=== PATIENT | male | born 1965 | race Caucasian/White ===

== ENCOUNTER 2016-12-25 12:51 | Emergency (ER) | payer BC ==
[2016-12-25] MEDS ORDERED: CETIRIZINE 10 MG TABLET PO STA (13:36)
[2016-12-25] MEDS ORDERED: DEXAMETHASONE 10 MG/ML VIAL PO STA (13:36)
[2016-12-25] MEDS ORDERED: DEXAMETHASONE 10 MG/ML VIAL ONE (13:47)
[2016-12-25] MEDS ORDERED: CETIRIZINE 10 MG TABLET ONE (13:47)
== END 2016-12-25 14:04 | disposition home or self-care (01) ==
DX: T63.441A Toxic effect of venom of bees, accidental (unintentional), initial encounter (principal); R22.0 Localized swelling, mass and lump, head
CPT/HCPCS: 99283; A9270

== ENCOUNTER 2018-12-22 14:43 | Emergency (ER) | payer BC ==
--- NOTE | 2018-12-22 15:04 | ED Physician Documentation ---
PD HPI UPPER EXT INJURY - Stated complaint Stated Complaint: L HAND LAC - History obtained from History obtained from: Patient - History of Present Illness Location: Left, Finger (thumb and middle finger) Type of injury: Laceration (He was feeding board into table saw and the wood bucked, causing hand to go into blade. Lac of the thumb on palmar distal phalanx, and major laceration down middle of middle finger in vertical orientation, down to PIP joint.) Where injury occurred: Home Timing - onset: Today Timing - details: Abrupt onset Worsened by: Moving, Palpating Associated symptoms: Weakness. No: Numbness Similar symptoms before: Has not had sx before Review of Systems Skin: reports: Laceration (s) Neurologic: reports: Focal weakness (he feels able to move finger weakly), Near syncope (felt lightheaded briefly when he saw his finger injury and from the pain. But no LOC.). denies: Numbness PD PAST MEDICAL HISTORY - Past Medical History Cardiovascular: None Respiratory: None Endocrine/Autoimmune: None - Present Medications Home Medications: Ambulatory Orders Medication Instructions Recorded Confirmed Atorvastatin [Lipitor] 0 mg PO .FREQ 12/25/16 12/25/16 Dexamethasone [Decadron] 4 mg PO DAILY #5 tablet 12/25/16 Ibuprofen [Advil] 600 mg PO .FREQ 12/25/16 12/25/16 Cephalexin [Keflex] 500 mg PO Q6H #28 capsule 12/22/18 Hydrocodone/Acetaminophen [[place] 1 each PO Q6H PRN #15 tablet 12/22/18 5-325 Tablet] Naproxen 500 mg PO BID #20 tablet 12/22/18 - Allergies Allergies/Adverse Reactions: Allergies Allergy/AdvReac Type Severity Reaction Status Date / Time No Known Drug Allergies Allergy Verified 12/25/16 12:58 PD ED PE NORMAL - Vitals Vital signs reviewed: Yes - General General: Alert and oriented X 3, No acute distress, Well developed/nourished - Derm Derm: Normal color, Warm and dry - Extremities Extremities: Other (laceration of the left thumb palmar fat pad diagonally, to fatty tissue. He can flex and extend at the IP. Normal sesnation at tip. The m iddle finger has vertical laceration starting at middle of nailbed and coming slight diagonal down to the PIP joint area, with the radial side flap falling to side, but still with color and bleeding. Mild sawdust seen in wound and will be irrigated once numbed.) - Neuro Neuro: Alert and oriented X 3, Normal speech, Other (he is able to engage flexion and extension, though extension at DIP is weak. There is visible splitting of some of the extensor tendon on radial side, but still appearing attached to ulnar side. He can flex weakly as well. He says there is sensation to touch/pain on both sides of the fingertip. Good color in both sides of the laceration.) Results - Vitals Vitals: Vital Signs - 24 hr 12/22/18 19:06 Heart Rate 84 Respiratory 18 Rate Blood Pressure 135/115 H O2 Saturation 96 Oxygen O2 Source Room air - Labs Labs: Laboratory Tests 12/22/18 12/22/18 14:55 14:55 WBC 9.9 RBC 4.30 L Hgb 13.4 L Hct 39.6 L MCV 92.0 MCH 31.3 H MCHC 34.0 RDW 13.5 Plt Count 279 MPV 8.0 Neut # (Auto) 4.7 Lymph # (Auto) 3.9 H [place] # (Auto) 1.1 H Eos # (Auto) 0.2 Baso # (Auto) 0.1 Absolute Nucleated RBC 0.00 Nucleated RBC % 0.0 Sodium 139 Potassium 3.3 L Chloride 101 Carbon Dioxide 27 Anion Gap 11.0 BUN 24 H Creatinine 1.1 Estimated GFR (MDRD) 70 L Glucose 143 H Calcium 9.1 Total Bilirubin 0.6 AST 28 ALT 25 Alkaline Phosphatase 67 Total Protein 6.8 Albumin 4.4 Globulin 2.4 Albumin/Globulin Ratio 1.8 Lipase 55 H - Rads (name of study) hand xray Radiology: Prelim report reviewed (split of distal phalanx. But the middle phalanx is not involved.), See rad report Procedures - Regional nerve block Nerve block site: Digital - note digit(s) (middle and thumb) Right / left: Left Nerve block anesthesia: Lidocaine 2% Nerve block aftercare: Excellent anesthesia PD MEDICAL DECISION MAKING - ED course Complexity details: reviewed results, considered differential (considerable laceration to finger; gave Ancef, and did digital block with good effect. Wound irrigated by staff. Dr. Dominguez consulted to evaluate the patient. ), d/w patient, d/w framing consultant (Dr. Dominguez, whom I asked to come in and see the patient. See his procedure note for closure.) Departure - Departure Disposition: 01 Home, Self Care Clinical Impression: Laceration of left middle finger Qualifiers: Encounter type: initial encounter Damage to nail status: with damage Foreign body presence: without foreign body Qualified Code(s): S61.313A - Laceration without foreign body of left middle finger with damage to nail, initial encounter Laceration of left thumb Qualifiers: Encounter type: initial encounter Damage to nail status: without damage Foreign body presence: without foreign body Qualified Code(s): S61.012A - Laceration without foreign body of left thumb without damage to nail, initial encounter Condition: Stable Record reviewed to determine appropriate education?: Yes Instructions: ED Laceration Hand Follow-Up: [facility] [Provider Group] Prescriptions: Cephalexin [Keflex] 500 mg PO Q6H #28 capsule Hydrocodone/Acetaminophen [[place] 5-325 Tablet] 1 each PO Q6H PRN #15 tablet PRN Reason: Pain Naproxen 500 mg PO BID #20 tablet Comments: Keep the area clean and dry. Change the dressing once or twice daily for the next several days. Naproxen anti-inflammatory twice daily. Cephalexin antibiotic as directed. Add Tylenol or hydrocodone as needed for pain. Follow- up with orthopedics next weeks as directed by them, call for an appointment. Discharge Date/Time: 12/22/18 19:07
[2018-12-22] MEDS ORDERED: LIDOCAINE 2% 10 ML MDV ONE ×3 (15:07→16:47)
[2018-12-22] MEDS ORDERED: ceFAZolin 1 GM VIAL ONE (15:11)
[2018-12-22] MEDS ORDERED: WATER FOR INJECTION,STERILE 10 ML ONE (15:11)
[2018-12-22] MEDS ORDERED: SODIUM CHLORIDE 0.9% 1,000 ML IV ONE (15:57)
[2018-12-22 16:14] LABS: BASOPHILS # (AUTO) 0.1 10^3/uL (0.0-0.1); BASOPHILS % (AUTO) 0.5 %; EOSINOPHILS # (AUTO) 0.2 10^3/uL (0.0-0.7); EOSINOPHILS % (AUTO) 1.9 %; HGB - HEMOGLOBIN 13.4 g/dL (14.0-18.0); LYMPHOCYTES # (AUTO) 3.9 10^3/uL (1.5-3.5); LYMPHOCYTES % (AUTO) 39.1 %; MEAN CORPUSCULAR HEMOGLOBIN 31.3 pg (27.0-31.0); MONOCYTES # (AUTO) 1.1 10^3/uL (0.0-1.0); MONOCYTES % (AUTO) 11.1 %; NEUTROPHILS # (AUTO) 4.7 10^3/uL (1.5-6.6); NEUTROPHILS % (AUTO) 47.4 %; PLT - PLATELET COUNT 279 10^3/uL (130-450); RED CELL DISTRIBUTION WIDTH 13.5 % (12.0-15.0); WHITE BLOOD COUNT 9.9 x10^3/uL (4.8-10.8)
[2018-12-22 16:35] LABS: ALBUMIN 4.4 g/dL (3.2-5.5); ALBUMIN/GLOBULIN RATIO 1.8 (1.0-2.2); BILIRUBIN,TOTAL 0.6 mg/dL (0.2-1.0); CALCIUM 9.1 mg/dL (8.5-10.3); CREATININE 1.1 mg/dL (0.6-1.2); TOTAL PROTEIN 6.8 g/dL (6.7-8.2)
--- NOTE | 2018-12-22 17:23 | PROVIDER PROGRESS NOTE ---
Subjective - Prog Note Date Prog Note Date: 12/22/18 Prog Note Time: 17:20 - Subjective Subjective: Patient JORGE cut left non dominant thumb and ring finger with a table saw while cutting lumber this afternoon. No numbness of fingers. Able to actively flex and extend all finger joints. Objective - Lab Results Fish Bones: 12/22/18 14:55 12/22/18 14:55 Other Labs: Lab Results x24hrs 12/22/18 12/22/18 Range/Units 14:55 14:55 WBC 9.9 (4.8-10.8) x10^3/uL RBC 4.30 L (4.70-6.10) 10^6/uL Hgb 13.4 L (14.0-18.0) g/dL Hct 39.6 L (42.0-52.0) % MCV 92.0 (80.0-94.0) fL MCH 31.3 H (27.0-31.0) pg MCHC 34.0 (32.0-36.0) g/dL RDW 13.5 (12.0-15.0) % Plt Count 279 (130-450) 10^3/uL MPV 8.0 (7.4-11.4) fL Neut # (Auto) 4.7 (1.5-6.6) 10^3/uL Lymph # (Auto) 3.9 H (1.5-3.5) 10^3/uL [place] # (Auto) 1.1 H (0.0-1.0) 10^3/uL Eos # (Auto) 0.2 (0.0-0.7) 10^3/uL Baso # (Auto) 0.1 (0.0-0.1) 10^3/uL Absolute Nucleated RBC 0.00 x10^3/uL Nucleated RBC % 0.0 /100WBC Sodium 139 (135-145) mmol/L Potassium 3.3 L (3.5-5.0) mmol/L Chloride 101 (101-111) mmol/L Carbon Dioxide 27 (21-32) mmol/L Anion Gap 11.0 (6-13) BUN 24 H (6-20) mg/dL Creatinine 1.1 (0.6-1.2) mg/dL Estimated GFR (MDRD) 70 L (>89) Glucose 143 H (70-100) mg/dL Calcium 9.1 (8.5-10.3) mg/dL Total Bilirubin 0.6 (0.2-1.0) mg/dL AST 28 (10-42) IU/L ALT 25 (10-60) IU/L Alkaline Phosphatase 67 (42-121) IU/L Total Protein 6.8 (6.7-8.2) g/dL Albumin 4.4 (3.2-5.5) g/dL Globulin 2.4 (2.1-4.2) g/dL Albumin/Globulin Ratio 1.8 (1.0-2.2) Lipase 55 H (22-51) U/L - Diagnostic Imaging Diagnostic Imaging Comments: XR showed: fractures of ring finger distal phalanx and distal phalanx of the thumb - Other Results/Comments Other Results/Comments: EXAM: Left thumb: oblique laceration of thumb volar pad. Sensation grossly intact over entire thumb pad. Active flexion and extension of thumb IP joint without pain. Left ring finger: Long longitudinal dorsal laceration, starting near the PIP joint and extending distally and wrapping around the tip of the finger and extending volarly to about the DIP joint. The radial flap was darkly discolored. Sensation groslly intact. Active flexion and extension of DIP and PIP joints without pain. Assessment/Plan - Problem List (1) Laceration of left ring finger with damage to nail Impression: After finger block with 2% lidocaine (10 ml), irrigated wound with 500 ml saline and loosely closed wound with 4-O nylon suture. Soft dressing applied PLAN: Cover with antibiotics and analgesics. Follow up in orthopedic clinic in 5-7 days for wound check. Qualifiers: Encounter type: initial encounter (2) Laceration of left thumb Impression: See procedure note
[2018-12-22] MEDS ORDERED: BACITRACIN OINT TOP ONE (17:24)
--- NOTE | 2018-12-22 18:26 | CONSULTATION NOTE ---
DATE OF SERVICE: 12/22/2018 Physician: Chandler Dominguez MD REFERRING PHYSICIAN: Dr. Joshua Jimenes of the Emergency Room Department. CHIEF COMPLAINT: "I cut my left thumb and finger." HISTORY OF PRESENT ILLNESS: Patient is a 53-year-old right-hand dominant retired man who apparently was cutting wood in his home shop with a table saw when he lost control of piece of lumber and this r esulted in laceration to the volar aspects of his left nondominant thumb and left ring finger. The p atient denied any actual numbness in the tip of his thumb or his ring finger. He did notice a fair a mount of bleeding. He was taken to the emergency room, where his evaluation showed sensation intact in both fingers. X-rays showed small fractures of the distal phalanx of the ring finger and of the thumb. He had good function of his ring and thumb. Orthopedics was consulted. PHYSICAL EXAMINATION: The patient's wounds had been irrigated out by the emergency room doctor after peripheral nerve blocks had been performed. An additional 200-300 mL of sterile saline was utilized to re-irrigate and wash out the wounds to the ring and thumb finger digits. We then proceeded to lo osely close both lacerations with simple stitches of 4-0 nylon suture. Sensation was unable to be examined, since the patient had a finger block in both the ring and thumb; though, patient stated the sensation was intact prior to the nerve block. Also, this was what was n oted by the emergency room doctor as well. Just prior to the wound closure, the radial flap of the r ing finger was somewhat dusky looking and dark; however, after reapproximation of the laceration the color improved significantly. X-RAYS: X-rays of the hand were reviewed. There was a small fracture seen of the distal phalanx of the ring finger. There appeared to be a nondisplaced longitudinal fracture of the distal phalanx of the thumb as well, though, it was only seen on one view. ASSESSMENT: Lacerations involving the left nondominant ring and thumb with associated distal phalang eal fractures of the ring and thumb digits. PLAN: Patient will keep dry dressings over his digits over the next few days. He will be covered pr ophylactically with antibiotics, as well as pain killers. He will follow up with a wound check in ab out 5-7 days in the Orthopedic Clinic. Should he note a fever or purulent drainage before that time, he will contact the hospital and will be evaluated in the emergency room as needed prior to his clin ic visit. TD: 12/22/2018 17:46
[2018-12-22 19:07] VITALS: BP 135/115
--- NOTE | 2018-12-22 21:14 | XRAY Report ---
Reason: Left 3rd digit vs table saw Procedure Date: 12/22/2018 Accession Number: [id number] / [id number] Procedure: XR - Hand 3 View LT CPT Code: FULL RESULT: EXAM: LEFT HAND RADIOGRAPHY EXAM DATE: 12/22/2018 03:08 PM. CLINICAL HISTORY: Finger laceration COMPARISON: None. TECHNIQUE: 3 views. FINDINGS: Bones: There is avulsion fracture through the tip of the third distal phalanx. The bone fragment is within soft tissue of the volar margin of the third digit. There is fracture through the first distal phalanx. Joints: No evidence of dislocation. Soft Tissues: No evidence of radiopaque foreign body. IMPRESSION: 1. Avulsion fracture through the tip of the third distal phalanx. The bone fragment is within soft tissue at the volar margin of the third digit. 2. There is longitudinally oriented fracture of the first distal phalanx. RADIA
== END 2018-12-22 19:07 | disposition home or self-care (01) ==
LOC: ED 14:43
DX: S62.633A Displaced fracture of distal phalanx of left middle finger, initial encounter for closed fracture (principal); S61.313A Laceration without foreign body of left middle finger with damage to nail, initial encounter; S66.323A Laceration of extensor muscle, fascia and tendon of left middle finger at wrist and hand level, initial encounter; S62.522A Displaced fracture of distal phalanx of left thumb, initial encounter for closed fracture; S61.012A Laceration without foreign body of left thumb without damage to nail, initial encounter; W31.2XXA Contact with powered woodworking and forming machines, initial encounter; Y93.H3 Activity, building and construction; Y92.009 Unspecified place in unspecified non-institutional (private) residence as the place of occurrence of the external cause
CPT/HCPCS: 36415; 64450; 73130; 80053; 83690; 85025; 99283; A9270

== ENCOUNTER 2023-12-13 09:55 | Day surgery (SDC) | payer BC ==
[2023-12-13] MEDS: LACTATED RINGERS 1,000 ML IV ONE ×2 (10:06→12:16)
[2023-12-13] MEDS ORDERED: PROPOFOL 500 MG/50 ML 500 MG/50 ML VIAL ONE (10:51)
--- NOTE | 2023-12-13 10:55 | ANESTHESIA ---
Pre-Anesthesia VS, & Labs - Diagnosis positive cologuard - Procedure colonoscopy Vital Signs: Temp Pulse Resp BP Pulse Ox O2 Flow Rate 36.3 C L 97 12 156/111 H 99 12/13/23 10:28 12/13/23 10:28 12/13/23 10:28 12/13/23 10:28 12/13/23 10:28 Height: 6 ft 2 in Weight (kg): 88.9 kg Body Mass Index: 25.1 BMI Classification: Overweight - NPO >8 hours - Lab Results Lab results reviewed: Yes Home Medications and Allergies Home Medications: Ambulatory Orders Cholecalciferol (Vitamin D3) [D3-5000] 1 tab PO DAILY 12/13/23 Atorvastatin [Lipitor] 20 mg PO HS 12/25/16 Cholecalciferol (Vitamin D3) [D3-5000] 1 tab PO DAILY 12/13/23 Allergies/Adverse Reactions: Allergies Allergy/AdvReac Type Severity Reaction Status Date / Time hydroxyzine [From Vistaril] Allergy Intermediate Itching Verified 12/13/23 10:22 Latex, Natural Rubber AdvReac Unknown Unknown Verified 12/13/23 10:23 Anes History & Medical History - Anesthetic History Anesthesia Complications: reports: No previous complications Family history of Anesthesia Complications: Denies Family history of Malignant Hyperthermia: Denies - Medical History Cardiovascular: reports: None, High cholesterol Pulmonary: reports: None Gastrointestinal: reports: None Urinary: reports: None Musculoskeletal: reports: Rheumatoid arthritis Endocrine/Autoimmune: reports: None Psychosocial: reports: Alcohol History of Cancer?: No - Surgical History Orthopedic: reports: Rotator cuff repair, Other Exam General: Alert, Oriented x3, Cooperative Dental: WNL Mouth Openin Fingerbreadth Neck Mobility: Normal Mallampati classification: II Thyromental Distance: 4-6 cm Respiratory: Lungs clear, Normal breath sounds, No respiratory distress Cardiovascular: Regular rate Neurological: Normal speech Mental/Cognitive Status: Alert/Oriented X3, Normal for patient Cognitive Status: Within normal limits Plan Anesthesia Type: Total IV Consent for Procedure(s) Verified and Reviewed: Yes Code Status: Attempt Resuscitation ASA classification: 2-Mild systemic disease Is this case an emergency?: No
[2023-12-13] MEDS ORDERED: PHENYLEPHRINE HCL 0.5 MG/5 ML AMPULE ONE (11:45)
[2023-12-13] MEDS ORDERED: PROPOFOL 200 MG/20 ML VIAL IVP ONE (11:55)
--- NOTE | 2023-12-13 12:27 | ANESTHESIA POST OP EVALUATION ---
Anesthesia Post Eval - Post Anesthesia Eval Vitals: Last Vital Signs Temp 36.0 C L 12/13/23 12:15 Pulse 106 H 12/13/23 12:15 Resp 12 12/13/23 12:15 BP 91/57 L 12/13/23 12:15 Pulse Ox 98 12/13/23 12:15 O2 Flow Rate CV Function Including HR & BP: Stable Pain Control: Satisfactory Nausea & Vomiting: Negative Mental Status: Baseline Respiratory Status: Airway Patent Hydration Status: Satisfactory Anesthesia Complications: None
[2023-12-13 12:59] VITALS: BP 132/81; O2SAT 99
== END 2023-12-13 09:56 | disposition home or self-care (01) ==
LOC: SDS 09:55
PROVIDERS: ATTEND Surgery
PROC: 0DBN8ZX Excision of Sigmoid Colon, Via Natural or Artificial Opening Endoscopic, Diagnostic (ICD-10-PCS; principal; 2023-12-13 11:15)
DX: R19.5 Other fecal abnormalities (principal); K63.5 Polyp of colon; K57.30 Diverticulosis of large intestine without perforation or abscess without bleeding; K64.1 Second degree hemorrhoids
CPT/HCPCS: 45385; J2372; J7120

== ENCOUNTER 2024-04-14 07:15 | Outpatient (CLI) | payer BC ==
--- NOTE | 2024-04-14 11:12 | XRAY Report ---
PROCEDURE: Foot 3+V LT INDICATIONS: PAIN IN LEFT FOOT TECHNIQUE: 3 views of the foot were acquired. COMPARISON: None. FINDINGS: Bones: Mild midfoot and first MTP degenerative changes. There is no acute displaced fracture or dislo cation. Soft tissues: No suspicious calcifications. IMPRESSION: No acute radiographic abnormality. Mild background degenerative changes. If there is high concern for further derangement, consider MRI evaluation. Reviewed by: Drake Richardson MD on 04/14/2024 11:11 AM PDT Approved by: Drake Richardson MD on 04/14/2024 11:11 AM PDT Station ID: [id number]
== END 2024-04-14 07:30 | disposition home or self-care (01) ==
LOC: DI.N 07:15
PROVIDERS: ATTEND Registered Nurse
DX: M19.072 Primary osteoarthritis, left ankle and foot (principal)